=== PATIENT | male | born 2000 | race African-American/Black ===

== ENCOUNTER 2025-03-27 08:41 | Emergency (ER) | payer MEDICAID, OTHER ==
[~2025-03-27] VITALS: Ht 182.9 cm; Wt 77.0 kg
[2025-03-27 08:45] VITALS: O2SAT 98
[2025-03-27 09:14] LABS: BASOPHILS % 0.2 % (0.0-2.0); EOSINOPHILS % 1.2 % (0.0-5.0); HEMATOCRIT. 40.1 % (42.0-52.0); HEMOGLOBIN. 13.7 g/dL (14.0-18.0); MEAN CORPUSCULAR HEMOGLOBIN 32.9 pg (28.0-32.0); MEAN CORPUSCULAR HGB CONC 34.1 g/dL (31.0-37.0); MEAN CORPUSCULAR VOLUME 96.5 fL (80.0-94.0); MEAN PLATELET VOLUME 8.3 fl (7.4-10.4); MONOCYTES % 6.6 % (2.0-8.0); PLATELET 250 x1000/uL (130-400); RED BLOOD CELL COUNT 4.15 mill/uL (4.7-6.1); RED CELL DISTRIBUTION WIDTH 14.4 % (11.6-14.6); WHITE BLOOD COUNT 13.2 x1000/uL (4.5-11.0)
[2025-03-27 09:28] LABS: CHLORIDE 105 mEq/L (98-107); POTASSIUM 3.7 mEq/L (3.5-5.1); SODIUM 139 mEq/L (136-145)
[2025-03-27 09:29] LABS: CALCIUM 9.8 mg/dL (8.7-10.4); CARBON DIOXIDE 20 mEq/L (21-32)
[2025-03-27 09:34] LABS: CREATININE 1.3 mg/dL (0.6-1.3); ETHANOL BLOOD < 10 mg/dL (<10); GLUCOSE 247 mg/dL (70-105); UREA NITROGEN BLOOD 14 mg/dL (9-23)
[2025-03-27] MEDS: LEVETIRACETAM 1000MG PREMIX 100 ML IV ONE (09:49)
[2025-03-27] MEDS: METOCLOPRAMIDE HCL 10MG/2ML VIAL IV ONE (09:49)
[2025-03-27] MEDS: KETOROLAC 30MG/ML VIAL IV STA (09:49)
[2025-03-27 11:50] VITALS: BP 112/55; PULSE 48; RESP 18; TEMP 37.1; O2SAT 98
== END 2025-03-27 12:03 | disposition home or self-care (01) ==
LOC: ER 08:41
DX: R56.9 Unspecified convulsions (principal)
CPT/HCPCS: 80048; 80320; 85025; 36415; 96365; 96375; 99284; J1953; J1885; J2765; Z7610 ×3; A4606; G0480